=== PATIENT | female | born 1935 | race Hispanic/Latino ===

== ENCOUNTER 2022-01-01 20:14 | Inpatient (IN) | payer MEDICARE, MEDICAID ==
[2022-01-01 21:00] VITALS: BMI 25.4
[2022-01-01] MEDS ORDERED: Dextrose 50% Abboject 50 ML SYRINGE SLOW IVP PRN (21:03)
[2022-01-01] MEDS ORDERED: Dextrose 5% in Water 1,000 ML IV PRN (21:03)
[2022-01-01] MEDS ORDERED: Morphine 4 MG/ML VIAL SLOW IVP PRN ×2 (21:05)
[2022-01-01] MEDS ORDERED: Promethazine HCl 12.5 MG in Sodium Chloride 0.9% 50 ML IVPB PRN (21:05)
[2022-01-01] MEDS: Ondansetron PF 4 MG/2 ML Vial IVP PRN (21:16)
[2022-01-01] MEDS ORDERED: Famotidine/PF 20 mg/2ml Vial SLOW IVP SCH (21:30)
[2022-01-01] MEDS ORDERED: Metoprolol Tartrate 5 MG/5 ML VIAL IVP SCH (21:30)
[2022-01-01] MEDS: Lactated Ringer's 1,000 ML IV SCH (22:26)
[2022-01-01] MEDS: HumaLOG 300 UNITS/3 ML VIAL SC PRN (22:29)
[2022-01-02] MEDS: Piperacillin/Tazobactam 3.375 GM in Sodium Chloride 0.9% 100 ML IVPB SCH ×2 (01:46→11:13)
[2022-01-02 05:25] LABS: Anion Gap 15 mmol/L (10-20); BUN (Urea Nitrogen) 23 mg/dL (9.8-20.1); Calc. Creatinine Clearance 52 mL/min (70-130); Calcium 8.9 mg/dL (7.8-10.44); Carbon Dioxide 20 mmol/L (23-31); Chloride 107 mmol/L (98-107); Glucose 228 mg/dL (83-110); Potassium 4.4 mmol/L (3.5-5.1); Sodium 138 mmol/L (136-145)
[2022-01-02 05:43] LABS: Hemoglobin 13.6 g/dL (12.0-15.5); Mean Corpuscular HGB CONC 34.4 g/dL (32.0-36.0); Mean Corpuscular Hemoglobin 34.7 pg (27.0-33.0); Mean Corpuscular Volume 100.8 fl (81.6-98.3); Platelet Count 251 10x3/uL (150-450); RBC Distribution Width 12.9 % (11.5-14.5); Red Blood Cell (RBC) Count 3.92 10x6/uL (3.90-5.03); White Blood Cell (WBC) Count 3.9 10x3/uL (3.5-10.5)
[2022-01-02 06:11] LABS: MDiff Complete? YES
[2022-01-02 06:13] LABS: Band 23 % (5-11); Eosinophils 1 % (0-10); Lymphocytes 12 % (21-51); Monocytes 10 % (0-10); Neutrophil 53 % (42-75)
[2022-01-02] MEDS: HumaLOG 300 UNITS/3 ML VIAL SC PRN (06:34)
[2022-01-02 08:04] LABS: Mean Platelet Volume 10.9 fl (7.4-10.4)
[2022-01-02] MEDS: Lactated Ringer's 1,000 ML IV SCH ×2 (08:11→16:11)
[2022-01-02] MEDS: Enoxaparin Sodium 40 MG/0.4 ML SYRINGE SC SCH (08:14)
[2022-01-02] MEDS: Metoprolol Tartrate 5 MG/5 ML VIAL IVP SCH ×2 (08:15→22:23)
[2022-01-02] MEDS ORDERED: Aspirin 81 mg Enteric Coated Tablet PO SCH (09:00)
[2022-01-02] MEDS ORDERED: Famotidine/PF 20 mg/2ml Vial SLOW IVP SCH (09:00)
[2022-01-02] MEDS: Ondansetron PF 4 MG/2 ML Vial IVP PRN (18:12)
[2022-01-03] MEDS: Lactated Ringer's 1,000 ML IV SCH ×2 (04:47→16:18)
[2022-01-03 04:55] LABS: Anion Gap 10 mmol/L (10-20); BUN (Urea Nitrogen) 31 mg/dL (9.8-20.1); Calc. Creatinine Clearance 62 mL/min (70-130); Calcium 8.6 mg/dL (7.8-10.44); Carbon Dioxide 25 mmol/L (23-31); Chloride 106 mmol/L (98-107); Glucose 126 mg/dL (83-110); Potassium 4.1 mmol/L (3.5-5.1); Sodium 137 mmol/L (136-145)
[2022-01-03 05:00] LABS: Hemoglobin 11.6 g/dL (12.0-15.5); Mean Corpuscular HGB CONC 34.5 g/dL (32.0-36.0); Mean Corpuscular Hemoglobin 35.7 pg (27.0-33.0); Mean Corpuscular Volume 103.4 fl (81.6-98.3); Mean Platelet Volume 10.5 fl (7.4-10.4); Platelet Count 197 10x3/uL (150-450); RBC Distribution Width 13.3 % (11.5-14.5); Red Blood Cell (RBC) Count 3.25 10x6/uL (3.90-5.03); White Blood Cell (WBC) Count 7.6 10x3/uL (3.5-10.5)
[2022-01-03 05:18] LABS: MDiff Complete? YES
[2022-01-03 05:21] LABS: Band 20 % (5-11); Lymphocytes 17 % (21-51); Monocytes 13 % (0-10); Neutrophil 47 % (42-75); Platelet Morphology Comment Appears Adequate; RBC Morphology Normal; Reactive Lymphocytes 3 % (0-10)
[2022-01-03] MEDS: Famotidine/PF 20 mg/2ml Vial SLOW IVP SCH (07:39)
[2022-01-03] MEDS: Enoxaparin Sodium 40 MG/0.4 ML SYRINGE SC SCH (07:40)
[2022-01-03] MEDS: Metoprolol Tartrate 5 MG/5 ML VIAL IVP SCH ×2 (07:40→22:00)
[2022-01-03 11:30] LABS: Troponin I 0.011 ng/mL (< 0.028)
[2022-01-03] MEDS: Labetalol HCl 100 MG/20 ML VIAL SLOW IVP PRN (11:36)
[2022-01-03] MEDS ORDERED: Chloraseptic Spray 180 ml Bottle PO PRN (11:49)
[2022-01-03] MEDS: Acetaminophen 325 MG TAB PO PRN (22:36)
[2022-01-04] MEDS: Piperacillin/Tazobactam 3.375 GM in Sodium Chloride 0.9% 100 ML IVPB SCH ×3 (00:50→14:39)
[2022-01-04] MEDS: Lactated Ringer's 1,000 ML IV SCH ×2 (01:40→18:44)
[2022-01-04 02:12] LABS: Bilirubin Neg (Negative); Blood, Urine 25 (Negative); Clarity Clear (Clear); Glucose, Urine (Dipstick) Normal (Negative); Ketone, Urine 5 mg/dL (Negative); Leukocyte 25 (Negative); Nitrite Negative (Negative); Protein, Urine (Dipstick) 15 mg/dl (Neg-Trace); Urobilinogen Normal mg/dL (Less than 2)
[2022-01-04 02:21] LABS: Bacteria/HPF 1+ HPF (None Seen); Mucous/LPF 1+ LPF (<2+); RBC/HPF 0-3 HPF (0-3); Squamous Epithelial 0-3 HPF (0-3)
[2022-01-04 06:45] LABS: #Eosinphils 0.2 10x3/uL (0.0-0.5); #Monocytes 0.4 10x3/uL (0.0-1.1); #Neutrophils 3.4 10x3/uL (1.5-8.4); %Basophils 0.4 % (0.0-2.0); %Lymphocytes 14.9 % (18.0-47.0); %Neutrophils 71.1 % (40.0-75.0); Hemoglobin 11.7 g/dL (12.0-15.5); Mean Corpuscular HGB CONC 34.6 g/dL (32.0-36.0); Mean Corpuscular Hemoglobin 35.2 pg (27.0-33.0); Mean Corpuscular Volume 101.8 fl (81.6-98.3); Mean Platelet Volume 11.1 fl (7.4-10.4); RBC Distribution Width 13.4 % (11.5-14.5); Red Blood Cell (RBC) Count 3.32 10x6/uL (3.90-5.03); White Blood Cell (WBC) Count 4.8 10x3/uL (3.5-10.5)
[2022-01-04 07:00] LABS: ALT (SGPT) 14 U/L (8-55); AST (SGOT) 22 U/L (5-34); Albumin 3.4 g/dL (3.4-4.8); Alkaline Phosphatase 72 U/L (40-110); Anion Gap 14 mmol/L (10-20); BUN (Urea Nitrogen) 24 mg/dL (9.8-20.1); Bilirubin, Total 1.1 mg/dL (0.2-1.2); Calc. Creatinine Clearance 61 mL/min (70-130); Calcium 8.8 mg/dL (7.8-10.44); Carbon Dioxide 22 mmol/L (23-31); Chloride 110 mmol/L (98-107); Globulin 2.8 g/dL (2.4-3.5); Glucose 129 mg/dL (83-110); Potassium 3.6 mmol/L (3.5-5.1); Protein, Total 6.2 g/dL (5.8-8.1); Sodium 142 mmol/L (136-145)
[2022-01-04 07:09] LABS: Platelet Count 195 10x3/uL (150-450)
[2022-01-04 07:21] LABS: Band 21 % (5-11); Eosinophils 2 % (0-10); Lymphocytes 16 % (21-51); Monocytes 10 % (0-10)
[2022-01-04 07:22] LABS: Platelet Morphology Comment Appears Adequate; RBC Morphology Normal
[2022-01-04] MEDS: Enoxaparin Sodium 40 MG/0.4 ML SYRINGE SC SCH (07:51)
[2022-01-04] MEDS: Famotidine/PF 20 mg/2ml Vial SLOW IVP SCH (07:51)
[2022-01-04] MEDS: Metoprolol Tartrate 5 MG/5 ML VIAL IVP SCH ×2 (07:52→22:00)
[2022-01-04] MEDS: Saccharomyces boulardii 250 MG CAP PO SCH (14:39)
[2022-01-05] MEDS: Piperacillin/Tazobactam 3.375 GM in Sodium Chloride 0.9% 100 ML IVPB SCH ×2 (00:17→07:37)
[2022-01-05] MEDS: Saccharomyces boulardii 250 MG CAP PO SCH ×3 (00:18→21:16)
[2022-01-05] MEDS: Ondansetron PF 4 MG/2 ML Vial IVP PRN ×2 (01:50→21:16)
[2022-01-05 06:34] LABS: Anion Gap 15 mmol/L (10-20); BUN (Urea Nitrogen) 19 mg/dL (9.8-20.1); Calc. Creatinine Clearance 64 mL/min (70-130); Calcium 8.6 mg/dL (7.8-10.44); Carbon Dioxide 22 mmol/L (23-31); Chloride 109 mmol/L (98-107); Glucose 111 mg/dL (83-110); Potassium 3.5 mmol/L (3.5-5.1); Sodium 142 mmol/L (136-145)
[2022-01-05 06:51] LABS: Hemoglobin 11.1 g/dL (12.0-15.5); Mean Corpuscular HGB CONC 33.1 g/dL (32.0-36.0); Mean Corpuscular Hemoglobin 34.5 pg (27.0-33.0); Platelet Count 227 10x3/uL (150-450); Red Blood Cell (RBC) Count 3.22 10x6/uL (3.90-5.03); White Blood Cell (WBC) Count 6.6 10x3/uL (3.5-10.5)
[2022-01-05 07:34] LABS: MDiff Complete? YES
[2022-01-05] MEDS: Metoprolol Tartrate 5 MG/5 ML VIAL IVP SCH (07:36)
[2022-01-05 07:37] LABS: Band 21 % (5-11); Eosinophils 7 % (0-10); Lymphocytes 17 % (21-51); Monocytes 6 % (0-10); Neutrophil 45 % (42-75); Reactive Lymphocytes 4 % (0-10)
[2022-01-05] MEDS: Famotidine/PF 20 mg/2ml Vial SLOW IVP SCH ×2 (07:37→21:16)
[2022-01-05] MEDS: Enoxaparin Sodium 40 MG/0.4 ML SYRINGE SC SCH (07:37)
[2022-01-05 07:38] LABS: Platelet Morphology Comment Appears Adequate
[2022-01-05 07:39] LABS: RBC Morphology Normal
[2022-01-05] MEDS ORDERED: Loperamide HCl 2 MG CAP PO SCH (12:30)
[2022-01-05] MEDS: Pramipexole Di-HCl 0.25 MG TAB PO SCH ×2 (13:36→21:16)
[2022-01-05] MEDS: Lactated Ringer's 1,000 ML IV SCH (14:19)
[2022-01-05] MEDS: Labetalol HCl 100 MG/20 ML VIAL SLOW IVP PRN (16:38)
[2022-01-05] MEDS ORDERED: Lisinopril 5 MG TAB PO SCH (21:00)
[2022-01-05] MEDS ORDERED: cefTRIAXone\\ROCEPHIN 1 GM in Sodium Chloride 0.9% 100 ML IVPB SCH (21:00)
[2022-01-06 05:27] LABS: Anion Gap 16 mmol/L (10-20); BUN (Urea Nitrogen) 14 mg/dL (9.8-20.1); Calc. Creatinine Clearance 74 mL/min (70-130); Calcium 8.3 mg/dL (7.8-10.44); Carbon Dioxide 21 mmol/L (23-31); Chloride 107 mmol/L (98-107); Glucose 108 mg/dL (83-110); Potassium 3.6 mmol/L (3.5-5.1); Sodium 140 mmol/L (136-145)
[2022-01-06] MEDS: Pramipexole Di-HCl 0.25 MG TAB PO SCH ×2 (05:50→13:41)
[2022-01-06 06:49] LABS: Hemoglobin 9.9 g/dL (12.0-15.5); Mean Corpuscular HGB CONC 35.4 g/dL (32.0-36.0); Mean Corpuscular Hemoglobin 35.9 pg (27.0-33.0); Mean Corpuscular Volume 101.4 fl (81.6-98.3); Mean Platelet Volume 10.3 fl (7.4-10.4); Platelet Count 201 10x3/uL (150-450); RBC Distribution Width 12.5 % (11.5-14.5); Red Blood Cell (RBC) Count 2.76 10x6/uL (3.90-5.03); White Blood Cell (WBC) Count 5.2 10x3/uL (3.5-10.5)
[2022-01-06] MEDS: Saccharomyces boulardii 250 MG CAP PO SCH (08:18)
[2022-01-06] MEDS: Enoxaparin Sodium 40 MG/0.4 ML SYRINGE SC SCH (08:18)
[2022-01-06] MEDS: Famotidine/PF 20 mg/2ml Vial SLOW IVP SCH (08:19)
[2022-01-06] MEDS: Lactated Ringer's 1,000 ML IV SCH (08:19)
[2022-01-06] MEDS ORDERED: Loperamide HCl 2 MG CAP PO PRN (09:00)
[2022-01-06 12:56] VITALS: BP 161/77; TEMP 98.9
== END 2022-01-06 16:36 | disposition home or self-care (01) | DRG 389 ==
LOC: CSHTELE 20:14 → OBSVTOIN 20:14
PROVIDERS: ADMIT Internal Medicine; ATTEND Internal Medicine
PROC: 0D9670Z Drainage of Stomach with Drainage Device, Via Natural or Artificial Opening (ICD-10-PCS; principal; 2022-01-01)
DX: K56.609 Unspecified intestinal obstruction, unspecified as to partial versus complete obstruction (principal); E87.2 Acidosis; N39.0 Urinary tract infection, site not specified; Z20.822 Contact with and (suspected) exposure to COVID-19; K80.20 Calculus of gallbladder without cholecystitis without obstruction; K57.30 Diverticulosis of large intestine without perforation or abscess without bleeding; E78.5 Hyperlipidemia, unspecified; E86.0 Dehydration; I25.10 Atherosclerotic heart disease of native coronary artery without angina pectoris; E11.65 Type 2 diabetes mellitus with hyperglycemia; N18.2 Chronic kidney disease, stage 2 (mild); E11.22 Type 2 diabetes mellitus with diabetic chronic kidney disease; I12.9 Hypertensive chronic kidney disease with stage 1 through stage 4 chronic kidney disease, or unspecified chronic kidney disease; G20 Parkinson's disease; E78.00 Pure hypercholesterolemia, unspecified; M19.90 Unspecified osteoarthritis, unspecified site; Z90.710 Acquired absence of both cervix and uterus; I25.2 Old myocardial infarction
CPT/HCPCS: 36415; 36416; 71045; 74018; 74250; 80048; 80053; 81001; 83630; 84145; 84484; 85025; 85027; 87045; 87046; 87086; 87324; 87427; 87449; 93005; 93010; J0696; J1650; J1815; J2270; J2405; J2543; J3490; J7120; S0028

== ENCOUNTER 2022-08-22 17:29 | Observation (INO) | payer MEDICARE, MEDICAID ==
[2022-08-22 18:06] VITALS: BMI 22.8
[2022-08-22] MEDS ORDERED: Nitroglycerin 0.4 MG TAB (25 Tab Bottle) SL PRN (18:59)
[2022-08-22] MEDS ORDERED: hydrALAZINE 20 MG/ML VIAL SLOW IVP PRN (19:00)
[2022-08-22 19:47] LABS: Troponin I Less than 0.010 ng/mL (< 0.028)
[2022-08-22] MEDS ORDERED: Ondansetron PF 4 MG/2 ML Vial IVP PRN (20:07)
[2022-08-22] MEDS ORDERED: Acetaminophen 325 MG TAB PO PRN (20:07)
[2022-08-22] MEDS ORDERED: Ondansetron ODT 4 MG TAB PO PRN (20:07)
[2022-08-22] MEDS ORDERED: Dextrose 50% Abboject 50 ML SYRINGE SLOW IVP PRN (21:08)
[2022-08-22] MEDS ORDERED: Dextrose 5% in Water 1,000 ML IV PRN (21:08)
[2022-08-22] MEDS ORDERED: HumaLOG 300 UNITS/3 ML VIAL SC PRN (21:08)
[2022-08-23 05:09] LABS: #Basophils 0.1 10x3/uL (0.0-0.2); #Eosinphils 0.2 10x3/uL (0.0-0.5); #Monocytes 0.7 10x3/uL (0.0-1.1); #Neutrophils 4.4 10x3/uL (1.5-8.4); %Basophils 0.9 % (0.0-2.0); %Eosinophils 3.2 % (0.0-6.0); %Lymphocytes 18.4 % (18.0-47.0); %Monocytes 10.2 % (0.0-10.0); %Neutrophils 67.1 % (40.0-75.0); Hemoglobin 11.8 g/dL (12.0-15.5); Mean Corpuscular HGB CONC 32.9 g/dL (32.0-36.0); Mean Corpuscular Hemoglobin 28.3 pg (27.0-33.0); Mean Corpuscular Volume 86.1 fl (81.6-98.3); Mean Platelet Volume 10.6 fl (7.4-10.4); Platelet Count 259 10x3/uL (150-450); RBC Distribution Width 12.9 % (11.5-14.5); Red Blood Cell (RBC) Count 4.17 10x6/uL (3.90-5.03); White Blood Cell (WBC) Count 6.6 10x3/uL (3.5-10.5)
[2022-08-23 05:20] LABS: SARS-CoV-2 NAA Rapid Test Not Detected (NotDetected)
[2022-08-23 05:33] LABS: Anion Gap 13 mmol/L (10-20); BUN (Urea Nitrogen) 19 mg/dL (9.8-20.1); Calc. Creatinine Clearance 48 mL/min (70-130); Calcium 9.2 mg/dL (7.8-10.44); Carbon Dioxide 23 mmol/L (23-31); Chloride 108 mmol/L (98-107); Estimated GFR 70; Glucose 151 mg/dL (83-110); Potassium 4.6 mmol/L (3.5-5.1); Sodium 139 mmol/L (136-145)
[2022-08-23] MEDS ORDERED: Aspirin Chewable 81 MG TAB PO SCH (09:00)
[2022-08-23] MEDS: Amantadine HCl 100 mg Capsule PO SCH ×2 (09:42→22:32)
[2022-08-23] MEDS: Atorvastatin Calcium 10 MG TAB PO SCH (09:44)
[2022-08-23] MEDS: Aspirin Chewable 81 MG TAB PO SCH (09:44)
[2022-08-23] MEDS: Pramipexole Di-HCl 0.25 MG TAB PO SCH (09:45)
[2022-08-23] MEDS: Enoxaparin Sodium 40 MG/0.4 ML SYRINGE SC SCH (09:45)
[2022-08-23] MEDS: HumaLOG 300 UNITS/3 ML VIAL SC PRN ×2 (12:02→18:41)
[2022-08-23] MEDS ORDERED: Lidocaine 5% Patch TD SCH ×2 (13:00)
[2022-08-23] MEDS ORDERED: Lisinopril 5 MG TAB PO SCH (21:00)
[2022-08-23] MEDS ORDERED: metFORMIN 500 MG TAB PO SCH (21:00)
[2022-08-24] MEDS ORDERED: Transdermal Patch Removal TOP SCH (01:00)
[2022-08-24 04:42] LABS: #Basophils 0.1 10x3/uL (0.0-0.2); #Eosinphils 0.3 10x3/uL (0.0-0.5); #Monocytes 0.6 10x3/uL (0.0-1.1); #Neutrophils 3.1 10x3/uL (1.5-8.4); %Basophils 0.9 % (0.0-2.0); %Lymphocytes 24.5 % (18.0-47.0); %Neutrophils 58.2 % (40.0-75.0); Hemoglobin 12.3 g/dL (12.0-15.5); Mean Corpuscular HGB CONC 32.7 g/dL (32.0-36.0); Mean Corpuscular Hemoglobin 28.1 pg (27.0-33.0); Mean Platelet Volume 10.5 fl (7.4-10.4); Platelet Count 252 10x3/uL (150-450); RBC Distribution Width 12.8 % (11.5-14.5); Red Blood Cell (RBC) Count 4.37 10x6/uL (3.90-5.03); White Blood Cell (WBC) Count 5.4 10x3/uL (3.5-10.5)
[2022-08-24 04:59] LABS: Anion Gap 14 mmol/L (10-20); BUN (Urea Nitrogen) 14 mg/dL (9.8-20.1); Calc. Creatinine Clearance 50 mL/min (70-130); Calcium 9.2 mg/dL (7.8-10.44); Carbon Dioxide 24 mmol/L (23-31); Chloride 105 mmol/L (98-107); Estimated GFR 73; Glucose 142 mg/dL (83-110); Potassium 4.2 mmol/L (3.5-5.1); Sodium 139 mmol/L (136-145)
[2022-08-24] MEDS: Pramipexole Di-HCl 0.25 MG TAB PO SCH (08:54)
[2022-08-24] MEDS: Atorvastatin Calcium 10 MG TAB PO SCH (08:54)
[2022-08-24] MEDS: Amantadine HCl 100 mg Capsule PO SCH (08:54)
[2022-08-24] MEDS: Aspirin Chewable 81 MG TAB PO SCH (08:54)
[2022-08-24] MEDS: Enoxaparin Sodium 40 MG/0.4 ML SYRINGE SC SCH (08:55)
[2022-08-24 11:25] VITALS: BP 133/68; TEMP 98.5
== END 2022-08-24 11:25 | disposition home or self-care (01) ==
LOC: CSHTELE 17:29 → INTOOBSV 17:29
PROVIDERS: ADMIT Family Medicine; ATTEND Family Medicine
DX: R07.2 Precordial pain (principal); M54.9 Dorsalgia, unspecified; R10.13 Epigastric pain; I25.10 Atherosclerotic heart disease of native coronary artery without angina pectoris; I10 Essential (primary) hypertension; E78.5 Hyperlipidemia, unspecified; G20 Parkinson's disease; I65.22 Occlusion and stenosis of left carotid artery; E11.9 Type 2 diabetes mellitus without complications; I25.2 Old myocardial infarction; Z87.19 Personal history of other diseases of the digestive system; Z20.822 Contact with and (suspected) exposure to COVID-19; Z79.82 Long term (current) use of aspirin; Z79.84 Long term (current) use of oral hypoglycemic drugs; Z79.899 Other long term (current) drug therapy
CPT/HCPCS: 80048 ×2; 82962 ×3; 83735 ×2; 84443; 84484; 85025 ×2; 93306; 94760 ×2; 97116; U0002; 36415; 36416; 96372; 96374; G0378; J0360; J1650; J1815

== ENCOUNTER 2023-01-07 16:54 | Inpatient (IN) | payer MEDICARE, MEDICAID ==
[2023-01-07 17:49] LABS: #Monocytes 0.9 10x3/uL (0.0-1.1); #Neutrophils 5.5 10x3/uL (1.5-8.4); %Basophils 0.4 % (0.0-2.0); %Eosinophils 0.1 % (0.0-6.0); %Lymphocytes 6.9 % (18.0-47.0); %Monocytes 13.4 % (0.0-10.0); %Neutrophils 78.8 % (40.0-75.0); Hemoglobin 12.4 g/dL (12.0-15.5); Mean Corpuscular HGB CONC 34.1 g/dL (32.0-36.0); Mean Corpuscular Hemoglobin 28.7 pg (27.0-33.0); Mean Corpuscular Volume 84.3 fl (81.6-98.3); Mean Platelet Volume 10.9 fl (7.4-10.4); Platelet Count 191 10x3/uL (150-450); RBC Distribution Width 12.7 % (11.5-14.5); Red Blood Cell (RBC) Count 4.32 10x6/uL (3.90-5.03); White Blood Cell (WBC) Count 6.9 10x3/uL (3.5-10.5)
[2023-01-07] MEDS ORDERED: Ketorolac Tromethamine 30 MG/ML VIAL ONE (18:11)
[2023-01-07 18:18] LABS: Bilirubin Neg (Negative); Blood, Urine 50 (Negative); Clarity Clear (Clear); Glucose, Urine (Dipstick) Normal (Negative); Ketone, Urine 15 mg/dL (Negative); Leukocyte Negative (Negative); Nitrite Negative (Negative); Protein, Urine (Dipstick) Negative (Neg-Trace); Specific Gravity, Urine 1.005 (1.005-1.030); Urobilinogen Normal mg/dL (Less than 2)
[2023-01-07 18:21] LABS: ALT (SGPT) 11 U/L (8-55); AST (SGOT) 20 U/L (5-34); Albumin 3.9 g/dL (3.4-4.8); Alkaline Phosphatase 126 U/L (40-110); Anion Gap 13 mmol/L (10-20); BUN (Urea Nitrogen) 16 mg/dL (9.8-20.1); Bilirubin, Total 0.5 mg/dL (0.2-1.2); Calc. Creatinine Clearance 0 mL/min (70-130); Calcium 8.8 mg/dL (7.8-10.44); Carbon Dioxide 22 mmol/L (23-31); Chloride 102 mmol/L (98-107); Estimated GFR 73; Globulin 2.9 g/dL (2.4-3.5); Glucose 124 mg/dL (83-110); Protein, Total 6.8 g/dL (5.8-8.1); Sodium 133 mmol/L (136-145)
[2023-01-07 18:42] LABS: Bacteria/HPF Rare-Few HPF (None Seen); RBC/HPF 0-3 HPF (0-3); Squamous Epithelial 0-3 HPF (0-3); WBC/HPF None Seen HPF (0-3)
[2023-01-07] MEDS ORDERED: Senokot S 8.6-50 MG TAB PO PRN (19:17)
[2023-01-07] MEDS ORDERED: HumaLOG 300 UNITS/3 ML VIAL SC PRN (19:17)
[2023-01-07] MEDS ORDERED: Ondansetron PF 4 MG/2 ML Vial IVP PRN (19:17)
[2023-01-07] MEDS ORDERED: Calcium Carbonate 500 MG ChewTAB PO PRN (19:17)
[2023-01-07] MEDS ORDERED: HYDROcodone/Acetaminophen 5/325 mg Tablet PO PRN ×2 (19:17→21:30)
[2023-01-07] MEDS ORDERED: Dextrose 50% Abboject 50 ML SYRINGE SLOW IVP PRN (19:17)
[2023-01-07] MEDS ORDERED: Dextrose 5% in Water 1,000 ML IV PRN (19:17)
[2023-01-07 19:20] LABS: SARS-CoV-2 NAA Rapid Test DETECTED (NotDetected)
[2023-01-07] MEDS ORDERED: Cefepime 1 GM VIAL ONE (19:31)
[2023-01-07] MEDS ORDERED: Lisinopril 5 MG TAB PO SCH (21:45)
[2023-01-07] MEDS ORDERED: Propranolol 40 MG TAB PO SCH (21:45)
[2023-01-07] MEDS ORDERED: NIRMATRELVIR 150 MG/RITONAVIR 100 MG PO SCH ×4 (22:00)
[2023-01-07] MEDS ORDERED: Amantadine HCl 100 mg Capsule PO SCH (22:00)
[2023-01-07] MEDS: NIRMATRELVIR 150 MG/RITONAVIR 100 MG PO SCH (23:33)
[2023-01-07] MEDS: metFORMIN 500 MG TAB PO SCH (23:46)
[2023-01-07] MEDS: Acetaminophen 325 MG TAB PO PRN (23:49)
[2023-01-07 23:57] VITALS: BMI 24.3
[2023-01-08 06:44] LABS: Anion Gap 12 mmol/L (10-20); BUN (Urea Nitrogen) 17 mg/dL (9.8-20.1); Calc. Creatinine Clearance 52 mL/min (70-130); Calcium 8.6 mg/dL (7.8-10.44); Carbon Dioxide 23 mmol/L (23-31); Chloride 106 mmol/L (98-107); Estimated GFR 73; Glucose 112 mg/dL (83-110); Magnesium 1.8 mg/dL (1.6-2.6); Sodium 137 mmol/L (136-145)
[2023-01-08] MEDS: Propranolol 40 MG TAB PO SCH ×2 (09:57→21:50)
[2023-01-08] MEDS: Amantadine HCl 100 mg Capsule PO SCH ×2 (09:58→21:50)
[2023-01-08] MEDS: Aspirin Chewable 81 MG TAB PO SCH (09:58)
[2023-01-08] MEDS: Zinc Gluconate 50 MG TAB PO SCH (09:58)
[2023-01-08] MEDS: NIRMATRELVIR 150 MG/RITONAVIR 100 MG PO SCH ×2 (10:01→21:53)
[2023-01-08] MEDS: Acetaminophen 325 MG TAB PO PRN (10:07)
[2023-01-08] MEDS: Pramipexole Di-HCl 0.25 MG TAB PO SCH (10:07)
[2023-01-08] MEDS ORDERED: Electrolyte Replacement Protocol 1 EACH FS SCH (14:30)
[2023-01-08] MEDS ORDERED: Magnesium 2 GM/50 ML(in water) 2 GM in Premix Bag 1 BAG IVPB SCH (14:45)
[2023-01-08] MEDS: Guaifenesin DM 100-10/5 ML UDCUP PO PRN (15:10)
[2023-01-08] MEDS ORDERED: Lisinopril 5 MG TAB PO SCH (21:00)
[2023-01-08] MEDS: metFORMIN 500 MG TAB PO SCH (21:50)
[2023-01-09] MEDS: Acetaminophen 325 MG TAB PO PRN (02:13)
[2023-01-09 05:51] LABS: ALT (SGPT) 14 U/L (8-55); AST (SGOT) 24 U/L (5-34); Albumin 3.2 g/dL (3.4-4.8); Alkaline Phosphatase 104 U/L (40-110); Anion Gap 11 mmol/L (10-20); BUN (Urea Nitrogen) 13 mg/dL (9.8-20.1); Bilirubin, Total 0.5 mg/dL (0.2-1.2); CRP (Inflammatory) 5.45 mg/dL (= or < 0.5); Calc. Creatinine Clearance 52 mL/min (70-130); Calcium 8.2 mg/dL (7.8-10.44); Carbon Dioxide 22 mmol/L (23-31); Chloride 103 mmol/L (98-107); Estimated GFR 75; Globulin 2.7 g/dL (2.4-3.5); Glucose 97 mg/dL (83-110); Potassium 3.4 mmol/L (3.5-5.1); Protein, Total 5.9 g/dL (5.8-8.1); Sodium 133 mmol/L (136-145)
[2023-01-09 06:08] LABS: Hemoglobin 11.3 g/dL (12.0-15.5); Mean Corpuscular HGB CONC 34.2 g/dL (32.0-36.0); Mean Corpuscular Hemoglobin 28.5 pg (27.0-33.0); Mean Corpuscular Volume 83.1 fl (81.6-98.3); Mean Platelet Volume 10.7 fl (7.4-10.4); Platelet Count 176 10x3/uL (150-450); RBC Distribution Width 12.6 % (11.5-14.5); Red Blood Cell (RBC) Count 3.97 10x6/uL (3.90-5.03); White Blood Cell (WBC) Count 4.3 10x3/uL (3.5-10.5)
[2023-01-09 06:49] LABS: MDiff Complete? YES
[2023-01-09 06:57] LABS: Band 5 % (5-11); Eosinophils 1 % (0-10); Lymphocytes 23 % (21-51); Monocytes 17 % (0-10); Neutrophil 54 % (42-75)
[2023-01-09 06:59] LABS: Platelet Morphology Comment Appears Adequate; RBC Morphology Normal
[2023-01-09] MEDS: Aspirin Chewable 81 MG TAB PO SCH (08:53)
[2023-01-09] MEDS: Zinc Gluconate 50 MG TAB PO SCH (08:53)
[2023-01-09] MEDS: Amantadine HCl 100 mg Capsule PO SCH ×2 (08:53→21:10)
[2023-01-09] MEDS: Propranolol 40 MG TAB PO SCH (08:53)
[2023-01-09] MEDS: NIRMATRELVIR 150 MG/RITONAVIR 100 MG PO SCH ×2 (08:54→22:22)
[2023-01-09] MEDS: Pramipexole Di-HCl 0.25 MG TAB PO SCH (08:57)
[2023-01-09] MEDS ORDERED: Potassium Chloride 20 MEQ TAB PO SCH (09:00)
[2023-01-09] MEDS ORDERED: Magnesium 2 GM/50 ML(in water) 2 GM in Premix Bag 1 BAG IVPB SCH (09:00)
[2023-01-09] MEDS ORDERED: Lisinopril 2.5 MG TAB PO SCH (21:00)
[2023-01-09] MEDS: Propranolol 10 MG TAB PO SCH (21:10)
[2023-01-09] MEDS: metFORMIN 500 MG TAB PO SCH (21:10)
[2023-01-10 06:16] LABS: ALT (SGPT) 12 U/L (8-55); AST (SGOT) 22 U/L (5-34); Albumin 3.5 g/dL (3.4-4.8); Alkaline Phosphatase 109 U/L (40-110); Anion Gap 14 mmol/L (10-20); BUN (Urea Nitrogen) 13 mg/dL (9.8-20.1); Bilirubin, Total 0.4 mg/dL (0.2-1.2); Calc. Creatinine Clearance 51 mL/min (70-130); Calcium 8.7 mg/dL (7.8-10.44); Carbon Dioxide 23 mmol/L (23-31); Chloride 105 mmol/L (98-107); Estimated GFR 72; Globulin 2.8 g/dL (2.4-3.5); Glucose 102 mg/dL (83-110); Potassium 4.1 mmol/L (3.5-5.1); Protein, Total 6.3 g/dL (5.8-8.1); Sodium 138 mmol/L (136-145)
[2023-01-10 06:19] LABS: Hemoglobin 11.8 g/dL (12.0-15.5); Mean Corpuscular HGB CONC 34.7 g/dL (32.0-36.0); Mean Corpuscular Hemoglobin 28.5 pg (27.0-33.0); Mean Corpuscular Volume 82.1 fl (81.6-98.3); Mean Platelet Volume 10.9 fl (7.4-10.4); Platelet Count 190 10x3/uL (150-450); RBC Distribution Width 12.6 % (11.5-14.5); Red Blood Cell (RBC) Count 4.14 10x6/uL (3.90-5.03); White Blood Cell (WBC) Count 3.4 10x3/uL (3.5-10.5)
[2023-01-10 07:04] LABS: MDiff Complete? YES
[2023-01-10 07:09] LABS: Eosinophils 5 % (0-10); Lymphocytes 32 % (21-51); Monocytes 18 % (0-10); Neutrophil 45 % (42-75)
[2023-01-10 07:10] LABS: Platelet Morphology Comment Appears Adequate; RBC Morphology Normal
[2023-01-10 07:12] LABS: CRP (Inflammatory) 2.85 mg/dL (= or < 0.5)
[2023-01-10] MEDS ORDERED: Magnesium 2 GM/50 ML(in water) 2 GM in Premix Bag 1 BAG IVPB SCH (08:00)
[2023-01-10] MEDS: Aspirin Chewable 81 MG TAB PO SCH (09:13)
[2023-01-10] MEDS: Amantadine HCl 100 mg Capsule PO SCH ×2 (09:13→21:53)
[2023-01-10] MEDS: Pramipexole Di-HCl 0.25 MG TAB PO SCH (09:13)
[2023-01-10] MEDS: Zinc Gluconate 50 MG TAB PO SCH (09:13)
[2023-01-10] MEDS ORDERED: Magnesium 2 GM/50 ML BAG (IN WATER) ONE (09:27)
[2023-01-10] MEDS: Guaifenesin DM 100-10/5 ML UDCUP PO PRN (09:29)
[2023-01-10] MEDS: NIRMATRELVIR 150 MG/RITONAVIR 100 MG PO SCH ×2 (10:23→21:55)
[2023-01-10] MEDS: Propranolol 10 MG TAB PO SCH ×2 (10:24→21:54)
[2023-01-10] MEDS ORDERED: Lisinopril 2.5 MG TAB PO SCH (21:00)
[2023-01-10] MEDS: metFORMIN 500 MG TAB PO SCH (21:53)
[2023-01-11] MEDS: Guaifenesin DM 100-10/5 ML UDCUP PO PRN (04:32)
[2023-01-11 06:29] LABS: #Eosinphils 0.2 10x3/uL (0.0-0.5); #Monocytes 0.7 10x3/uL (0.0-1.1); #Neutrophils 4.5 10x3/uL (1.5-8.4); %Basophils 0.5 % (0.0-2.0); %Eosinophils 2.5 % (0.0-6.0); %Lymphocytes 16.7 % (18.0-47.0); %Monocytes 10.2 % (0.0-10.0); %Neutrophils 69.6 % (40.0-75.0); Mean Corpuscular HGB CONC 34.3 g/dL (32.0-36.0); Mean Corpuscular Hemoglobin 28.4 pg (27.0-33.0); Mean Corpuscular Volume 82.7 fl (81.6-98.3); Mean Platelet Volume 10.5 fl (7.4-10.4); Platelet Count 204 10x3/uL (150-450); RBC Distribution Width 12.6 % (11.5-14.5); Red Blood Cell (RBC) Count 4.23 10x6/uL (3.90-5.03); White Blood Cell (WBC) Count 6.4 10x3/uL (3.5-10.5)
[2023-01-11 06:47] LABS: ALT (SGPT) 16 U/L (8-55); AST (SGOT) 23 U/L (5-34); Albumin 3.6 g/dL (3.4-4.8); Alkaline Phosphatase 116 U/L (40-110); Anion Gap 14 mmol/L (10-20); BUN (Urea Nitrogen) 12 mg/dL (9.8-20.1); Bilirubin, Total 0.4 mg/dL (0.2-1.2); Calc. Creatinine Clearance 51 mL/min (70-130); Calcium 8.8 mg/dL (7.8-10.44); Carbon Dioxide 22 mmol/L (23-31); Chloride 104 mmol/L (98-107); Estimated GFR 72; Globulin 2.8 g/dL (2.4-3.5); Glucose 159 mg/dL (83-110); Magnesium 1.9 mg/dL (1.6-2.6); Protein, Total 6.4 g/dL (5.8-8.1); Sodium 136 mmol/L (136-145)
[2023-01-11 07:23] LABS: CRP (Inflammatory) 1.55 mg/dL (= or < 0.5)
[2023-01-11] MEDS ORDERED: Magnesium 2 GM/50 ML(in water) 2 GM in Premix Bag 1 BAG IVPB SCH (09:00)
[2023-01-11] MEDS: Propranolol 10 MG TAB PO SCH (09:31)
[2023-01-11] MEDS: Zinc Gluconate 50 MG TAB PO SCH (09:31)
[2023-01-11] MEDS: Amantadine HCl 100 mg Capsule PO SCH (09:31)
[2023-01-11] MEDS: Aspirin Chewable 81 MG TAB PO SCH (09:32)
[2023-01-11] MEDS: Pramipexole Di-HCl 0.25 MG TAB PO SCH (09:32)
[2023-01-11] MEDS: NIRMATRELVIR 150 MG/RITONAVIR 100 MG PO SCH (09:33)
[2023-01-11] MEDS ORDERED: Magnesium 2 GM/50 ML BAG (IN WATER) ONE (09:56)
[2023-01-11 12:57] VITALS: TEMP 98
[2023-01-11 14:23] VITALS: BP 168/66
[2023-01-11] MEDS: Acetaminophen 325 MG TAB PO PRN (14:39)
== END 2023-01-11 15:50 | disposition home health service (06) | DRG 871 ==
LOC: CSHERS 16:54 → CSHTELE 20:49
PROVIDERS: ADMIT Student in an Organized Health Care Education/Training Program; ATTEND Internal Medicine
PROC: 8E0ZXY6 Isolation (ICD-10-PCS; principal; 2023-01-07)
PROC: XW0DXF5 Introduction of Other New Technology Therapeutic Substance into Mouth and Pharynx, External Approach, New Technology Group 5 (ICD-10-PCS; 2023-01-07)
PROC: 3E03329 Introduction of Other Anti-infective into Peripheral Vein, Percutaneous Approach (ICD-10-PCS; 2023-01-07)
DX: A41.89 Other specified sepsis (principal); U07.1 COVID-19; E87.1 Hypo-osmolality and hyponatremia; D53.9 Nutritional anemia, unspecified; E78.5 Hyperlipidemia, unspecified; G20 Parkinson's disease; R53.81 Other malaise; I25.10 Atherosclerotic heart disease of native coronary artery without angina pectoris; N18.2 Chronic kidney disease, stage 2 (mild); E11.65 Type 2 diabetes mellitus with hyperglycemia; E11.22 Type 2 diabetes mellitus with diabetic chronic kidney disease; I12.9 Hypertensive chronic kidney disease with stage 1 through stage 4 chronic kidney disease, or unspecified chronic kidney disease; E86.0 Dehydration; E83.42 Hypomagnesemia; E87.6 Hypokalemia; Z79.899 Other long term (current) drug therapy; Z79.82 Long term (current) use of aspirin; Z82.49 Family history of ischemic heart disease and other diseases of the circulatory system; Z90.710 Acquired absence of both cervix and uterus; I25.2 Old myocardial infarction; Z79.84 Long term (current) use of oral hypoglycemic drugs; I95.9 Hypotension, unspecified
CPT/HCPCS: 36415; 36416; 51701; 71045; 80048; 80053; 81003; 81015; 83605; 83735; 84484; 85025; 86140; 87040; 87086; 93005; 96361; 96365; 96375; J0692; J1650; J1815; J1885; J2405; J3475

== ENCOUNTER 2023-01-14 21:35 | Emergency (ER) | payer MEDICARE, MEDICAID ==
[~2023-01-14 21:35] MED LIST: Iopamidol 300 61% 100 ML VIAL FS ONE
[2023-01-14 23:03] LABS: #Eosinphils 0.3 10x3/uL (0.0-0.5); #Monocytes 0.7 10x3/uL (0.0-1.1); %Basophils 0.5 % (0.0-2.0); %Eosinophils 4.3 % (0.0-6.0); %Lymphocytes 22.8 % (18.0-47.0); %Monocytes 10.3 % (0.0-10.0); Hemoglobin 12.8 g/dL (12.0-15.5); Mean Corpuscular Hemoglobin 28.3 pg (27.0-33.0); Mean Corpuscular Volume 83.4 fl (81.6-98.3); Mean Platelet Volume 10.2 fl (7.4-10.4); Platelet Count 330 10x3/uL (150-450); RBC Distribution Width 12.5 % (11.5-14.5); Red Blood Cell (RBC) Count 4.52 10x6/uL (3.90-5.03); White Blood Cell (WBC) Count 6.6 10x3/uL (3.5-10.5)
[2023-01-14 23:16] LABS: ALT (SGPT) 24 U/L (8-55); AST (SGOT) 23 U/L (5-34); Albumin 3.9 g/dL (3.4-4.8); Alkaline Phosphatase 126 U/L (40-110); Anion Gap 15 mmol/L (10-20); BUN (Urea Nitrogen) 25 mg/dL (9.8-20.1); Bilirubin, Total 0.2 mg/dL (0.2-1.2); Calc. Creatinine Clearance 0 mL/min (70-130); Calcium 9.4 mg/dL (7.8-10.44); Carbon Dioxide 21 mmol/L (23-31); Chloride 105 mmol/L (98-107); Estimated GFR 70; Globulin 3.2 g/dL (2.4-3.5); Glucose 159 mg/dL (83-110); Lipase 17 U/L (8-78); Potassium 4.6 mmol/L (3.5-5.1); Protein, Total 7.1 g/dL (5.8-8.1); Sodium 136 mmol/L (136-145)
[2023-01-15 00:38] LABS: Bilirubin Neg (Negative); Blood, Urine 10 (Negative); Clarity Clear (Clear); Glucose, Urine (Dipstick) Normal (Negative); Ketone, Urine Negative (Negative); Leukocyte Negative (Negative); Nitrite Negative (Negative); Protein, Urine (Dipstick) Negative (Neg-Trace); Specific Gravity, Urine 1.015 (1.005-1.030); Urobilinogen Normal mg/dL (Less than 2)
[2023-01-15 00:52] LABS: Bacteria/HPF None Seen HPF (None Seen); WBC/HPF 0-3 HPF (0-3)
== END 2023-01-15 01:27 | disposition home or self-care (01) ==
LOC: CSHERS 21:35
DX: R53.81 Other malaise (principal); I25.2 Old myocardial infarction; I10 Essential (primary) hypertension; E78.5 Hyperlipidemia, unspecified; E11.9 Type 2 diabetes mellitus without complications; Z79.899 Other long term (current) drug therapy; Z79.84 Long term (current) use of oral hypoglycemic drugs
CPT/HCPCS: 36416; 71045; 74177; 80053; 81003; 81015; 83605; 83690; 84484; 85025; 96360; Q9967